=== PATIENT | female | born 1950 | race Native Hawaiian/Other Pacific Islander ===

== ENCOUNTER 2022-02-16 07:58 | Outpatient (CLI) | payer OTHER, MEDICARE ==
[~2022-02-16] VITALS: Ht 157.5 cm; Wt 68.0 kg
== END 2022-02-16 20:21 | disposition home or self-care (01) ==
LOC: NM 07:58
PROVIDERS: ATTEND Internal Medicine
DX: R53.83 Other fatigue (principal); R42 Dizziness and giddiness; Z79.899 Other long term (current) drug therapy
CPT/HCPCS: A9500; J2785